=== PATIENT | male | born 1955 | race Caucasian/White ===

== ENCOUNTER 2018-10-13 17:29 | Emergency (ER) | payer OTHER ==
[~2018-10-13] VITALS: Ht 165.1 cm; Wt 83.9 kg
[~2018-10-13 17:29] MED LIST: HYZAAR 100/25 T1 TAB PO; LISINOPRIL10 MG; SULINDAC200 MG
[2018-10-13] MEDS ORDERED: TOPROL XL25 M1 (18:34)
[2018-10-13] MEDS ORDERED: AVAPRO150 MG (18:35)
[2018-10-13] MEDS ORDERED: IBUPROFEN800 MG (18:36)
[2018-10-13] MEDS ORDERED: AZITHROMYCIN500 MG (18:37)
[2018-10-13] MEDS ORDERED: AFRIN15 ML (18:37)
[2018-10-13] MEDS ORDERED: TIMOPTIC 0.5%1 EACH (18:38)
[2018-10-13] MEDS ORDERED: DEXAMETHASONE1 MG (18:40)
== END 2018-10-13 21:59 | disposition home or self-care (01) ==
LOC: ER 17:29
DX: J01.00 Acute maxillary sinusitis, unspecified (principal)

== ENCOUNTER 2018-11-01 05:40 | Emergency (ER) | payer OTHER ==
[~2018-11-01] VITALS: Ht 165.1 cm; Wt 83.9 kg
[~2018-11-01 05:40] MED LIST changes: +AFRIN15 ML; +AVAPRO150 MG; +AZITHROMYCIN500 MG; +DEXAMETHASONE1 MG; +IBUPROFEN800 MG; +TIMOPTIC 0.5%1 EACH; +TOPROL XL25 M1
== END 2018-11-01 08:10 | disposition home or self-care (01) ==
LOC: ER 05:40
DX: G50.1 Atypical facial pain (principal)

== ENCOUNTER 2018-11-06 00:56 | Emergency (ER) | payer OTHER ==
[~2018-11-06] VITALS: Ht 165.1 cm; Wt 83.9 kg
[2018-11-06] MEDS ORDERED: ENDOCET 5-3251 EACH (01:09)
[2018-11-06] MEDS ORDERED: AMOX-CLAV 875-1 EACH (01:09)
[2018-11-06] MEDS ORDERED: OMEPRAZOLE20 M1 (01:10)
[2018-11-06] MEDS ORDERED: KETO10TA2 PO (07:35)
[2018-11-06] MEDS ORDERED: MEDROLPACK PO (07:35)
== END 2018-11-06 09:51 | disposition home or self-care (01) ==
LOC: ER 00:56
DX: G44.209 Tension-type headache, unspecified, not intractable (principal); C85.11 Unspecified B-cell lymphoma, lymph nodes of head, face, and neck; J32.0 Chronic maxillary sinusitis

== ENCOUNTER → 2020-08-22 | Outpatient (CLI) | payer OTHER ==
[~2020-08-22] MED LIST changes: +AMOX-CLAV 875-1 EACH; +ENDOCET 5-3251 EACH; +KETO10TA2 PO; +MEDROLPACK PO; +OMEPRAZOLE20 M1
== END | disposition home or self-care (01) ==
LOC: NUCLEAR 08-21 10:00
DX: Z94.84 Stem cells transplant status (principal)

== ENCOUNTER 2023-05-08 10:05 | Outpatient (CLI) | payer OTHER | END 2023-05-08 10:13 | disposition home or self-care (01) | LOC: SONOGRAMA 10:05 | DX: M25.551 Pain in right hip (principal) ==